=== PATIENT | male | born 1955 | race Caucasian/White ===

== ENCOUNTER → 2016-10-23 | Outpatient (CLI) | payer MEDICAID | LOC: SP 12:59 | PROVIDERS: ATTEND Internal Medicine Cardiovascular Disease | DX: R09.89 Other specified symptoms and signs involving the circulatory and respiratory systems (principal) | CPT/HCPCS: 93880 ==

== ENCOUNTER → 2016-11-14 | Outpatient (CLI) | payer MEDICAID ==
--- NOTE | 2016-11-14 12:45 | XCELERA REPORT ---
[address] [address] Lower Extremity Arterial Evaluation Name: PEPPER MARK Age: 61 yrs Gender: Male : 1955 Patient Status: Outpatient Patient Location: Study Date: 11/14/2016 11:27 AM Procedure: A color flow and duplex scan of the lower extremity arteries was performed bilaterally with velocity and waveform anaylsis. Ankle brachial indicies performed. Reason For Study: PVD Ordering Physician: FLY ROSALES Performed By: Judy Krishna Measurements and Calculations Right Left CORPORATE TRUST OFFICER PSV 105.3 110.3 cm/sec Prox PFA PSV -74.4 -101.3 cm/sec Prox SFA PSV 105.3 96.4 cm/sec Mid SFA PSV -88.8 -73.2 cm/sec Dist SFA PSV -71.6 -77.1 cm/sec Prox Pop A PSV 72.5 64.3 cm/sec Dist GISELLA PSV 62.0 61.9 cm/sec Dist LIBRARY CLERK PSV 74.2 57.5 cm/sec Oscar Pedis PSV 64.6 62.0 cm/sec Right Side Arterial Evaluation Normal velocity, waveform and triphasic flow are present, from the Common Femoral artery down to the infrageniculate vessels. The ankle-brachial index is 1.25. 0 % stenosis is noted. Left Side Arterial Evaluation Normal velocity, waveform and triphasic flow are present, from the Common Femoral artery down to the infrageniculate vessels. The ankle-brachial index is 1.20. 0 % stenosis is noted. Interpretation Summary No hemodynamically significant lesions in the bilateral lower extremities, on duplex imaging, at rest. : FLY ROSALES > Miceky Levi
== END ==
LOC: SP 10:39
PROVIDERS: ATTEND Internal Medicine Cardiovascular Disease
DX: I73.89 Other specified peripheral vascular diseases (principal)
CPT/HCPCS: 93925

== ENCOUNTER → 2017-05-13 | Outpatient (CLI) | payer MEDICAID ==
--- NOTE | 2017-05-13 09:50 | RADIOLOGY REPORT (SQ) ---
EXAM DESCRIPTION: LUMBAR SPINE COMPLETE COMPLETED DATE/TIME: 05/13/2017 9:32 am REASON FOR STUDY: LUMBAGO WITH SCIATICA, LEFT SIDE M54.42 LUMBAGO WITH SCIATICA, LEFT SIDE COMPARISON: None. NUMBER OF VIEWS: Five views including obliques. TECHNIQUE: AP, lateral, oblique, and sacral radiographic images acquired of the lumbar spine. LIMITATIONS: None. FINDINGS: MINERALIZATION: Normal. SEGMENTATION: Normal. No transitional anatomy. ALIGNMENT: Normal. VERTEBRAE: Maintained height. No fracture or worrisome bone lesion. DISCS: Preserved height. No significant osteophytes or end plate irregularity. POSTERIOR ELEMENTS: Pedicles and facets are intact. No pars defect or posterior arch defects. HARDWARE: None in the spine. PARASPINAL SOFT TISSUES: Normal. PELVIS: Intact as visualized. No fractures or worrisome bone lesions. SI joints intact. OTHER: No other significant finding. IMPRESSION: NORMAL 5 VIEW LUMBAR SPINE. TECHNICAL DOCUMENTATION: JOB ID: [id number] [employer]- All Rights Reserved
== END ==
LOC: OD 09:16
PROVIDERS: ATTEND Family Medicine
DX: M54.42 Lumbago with sciatica, left side (principal)
CPT/HCPCS: 72110

== ENCOUNTER 2017-11-18 13:31 | Emergency (ER) | payer MEDICAID ==
[2017-11-18 13:56] LABS: ABSOLUTE BASOPHILS # (AUTO) 0.2 10^3/uL (0.0-0.2); ABSOLUTE EOSINOPHILS # (AUTO) 0.1 10^3/uL (0.0-0.6); ABSOLUTE LYMPHOCYTES (AUTO) 1.8 10^3/uL (0.5-4.7); ABSOLUTE MONOCYTES (AUTO) 0.7 10^3/uL (0.1-1.4); ABSOLUTE NEUT (AUTO) 3.7 10^3/uL (1.7-8.2); BASOPHILS % (AUTO) 2.4 % (0-2); EOSINOPHILS % (AUTO) 1.8 % (0-6); HEMATOCRIT 39.7 % (37.9-51.0); HEMOGLOBIN 13.3 g/dL (13.5-17.0); MEAN CORPUSCULAR HEMOGLOBIN 32.3 pg (27.0-33.4); MEAN CORPUSCULAR HGB CONC 33.6 g/dL (32.0-36.0); MEAN CORPUSCULAR VOLUME 96 fl (80-97); MONOCYTES % (AUTO) 10.6 % (3-13); PLATELET COUNT 233 10^3/uL (150-450); RED BLOOD COUNT 4.12 10^6/uL (4.35-5.55); RED CELL DISTRIBUTION WIDTH 14.7 % (11.5-14.0); SEGMENTED NEUTROPHILS % (AUTO) 57.2 % (42-78); TOTAL CELLS COUNTED % (AUTO) 100 %; WHITE BLOOD COUNT 6.4 10^3/uL (4.0-10.5)
[2017-11-18 14:13] LABS: ALANINE AMINOTRANSFERASE 40 U/L (21-72); ALBUMIN 3.7 g/dL (3.5-5.0); ALKALINE PHOSPHATASE 39 U/L (38-126); ANION GAP 8 (5-19); ASPARTATE AMINO TRANSFERASE 39 U/L (17-59); BILIRUBIN,DIRECT 0.3 mg/dL (0.0-0.4); BILIRUBIN,TOTAL 0.3 mg/dL (0.2-1.3); BLOOD UREA NITROGEN 19 mg/dL (7-20); CALCIUM 8.5 mg/dL (8.4-10.2); CARBON DIOXIDE 25 mmol/L (22-30); CHLORIDE 106 mmol/L (98-107); CREATINE KINASE 37 U/L (55-170); GLUCOSE 82 mg/dL (75-110); POTASSIUM 4.8 mmol/L (3.6-5.0); SODIUM 139.1 mmol/L (137-145); TOTAL PROTEIN 6.5 g/dL (6.3-8.2)
[2017-11-18] MEDS ORDERED: NORMAL SALINE 1000 ML 1,000 ML IV ONE (14:23)
[2017-11-18 14:25] LABS: CREATINE KINASE MB 0.29 ng/mL (<4.55)
[2017-11-18 14:26] LABS: TROPONIN I < 0.012 ng/mL
[2017-11-18 14:47] LABS: APPEARANCE,URINE SLIGHTLY-CLOUDY; BILIRUBIN,URINE NEGATIVE (NEGATIVE); COLOR,URINE YELLOW; GLUCOSE, URINE NEGATIVE (NEGATIVE); KETONES,URINE NEGATIVE (NEGATIVE); LEUKOCYTE ESTERASE,URINE NEGATIVE (NEGATIVE); NITRITE,URINE NEGATIVE (NEGATIVE); PROTEIN,URINE NEGATIVE (NEGATIVE); URINE SPECIFIC GRAVITY 1.012
--- NOTE | 2017-11-18 14:57 | ER Document Report ---
ED General - General Chief Complaint: Syncope Stated Complaint: WEAKNESS Time Seen by Provider: 11/18/17 14:23 TRAVEL OUTSIDE OF THE [place] IN LAST 30 DAYS: No - HPI Patient complains to provider of: Near syncopal Notes: Patient coming in for near syncopal episode. Patient states he was in his house when they were knocking on his door he went to stand up turgor states he may stand up too fast tunnel vision and then slid down the wall. Patient denies falling denies any head pain chest pain or abdominal pain prior to during or after this episode. Patient orthostatic upon arrival here to ER and has received 2 L of IV fluids. Upon my evaluation patient resting comfortably does not have any other complaints. Patient denies fevers chills nausea vomiting recent travel. Patient's resting comfortably requesting something E. Upon further review the patient's past visits patient looked have elevated alcohol in the past denies any alcohol today we will check an alcohol level. - Related Data Allergies/Adverse Reactions: No Known Allergies Allergy (Verified 06/05/15 09:15) Past Medical History - Social History Smoking Status: Unknown if Ever Smoked Family History: Reviewed & Not Pertinent - Past Medical History Cardiac Medical History: Reports: Hx Hypertension Denies: Hx Coronary Artery Disease, Hx Heart Attack Pulmonary Medical History: Reports: Hx COPD, Hx Pneumonia Denies: Hx Asthma, Hx Bronchitis Neurological Medical History: Denies: Hx Cerebrovascular Accident, Hx Seizures GI Medical History: Reports: Hx Gastroesophageal Reflux Disease Musculoskeltal Medical History: Reports Hx Arthritis Psychiatric Medical History: Reports: Hx Depression - Immunizations Hx Diphtheria, Pertussis, Tetanus Vaccination: Yes Hx Pneumococcal Vaccination: 09/08/00 Review of Systems - Review of Systems Constitutional: No symptoms reported EENT: No symptoms reported Cardiovascular: Syncope Respiratory: No symptoms reported Gastrointestinal: No symptoms reported Genitourinary: No symptoms reported Male Genitourinary: No symptoms reported Musculoskeletal: No symptoms reported Skin: No symptoms reported Hematologic/Lymphatic: No symptoms reported Neurological/Psychological: No symptoms reported -: Yes All other systems reviewed and negative Physical Exam - Vital signs Vitals: Resp 17 11/18/17 13:45 Interpretation: Normal - General General appearance: Appears well, Alert - HEENT Head: Normocephalic, Atraumatic Eyes: Normal Pupils: PERRL - Respiratory Respiratory status: No respiratory distress Chest status: Nontender Breath sounds: Normal Chest palpation: Normal - Cardiovascular Rhythm: Regular Heart sounds: Normal auscultation Murmur: No - Abdominal Inspection: Normal Distension: No distension Bowel sounds: Normal Tenderness: Nontender Organomegaly: No organomegaly - Back Back: Normal, Nontender - Extremities General upper extremity: Normal inspection, Nontender, Normal color, Normal ROM , Normal temperature General lower extremity: Normal inspection, Nontender, Normal color, Normal ROM , Normal temperature, Normal weight bearing. No: Neda's sign - Neurological Neuro grossly intact: Yes Cognition: Normal Orientation: AAOx4 Alfa Coma Scale Eye Opening: Spontaneous Alfa Coma Scale Verbal: Oriented Arvin Coma Scale Motor: Obeys Commands Arvin Coma Scale Total: 15 Speech: Normal Motor strength normal: LUE, RUE, LLE, RLE Sensory: Normal - Psychological Associated symptoms: Normal affect, Normal mood - Skin Skin Temperature: Warm Skin Moisture: Dry Skin Color: Normal Course - Re-evaluation Re-evalutation: 11/18/17 14:56 We will check alcohol level due to previous visits having elevated alcohol. Patient otherwise still slightly orthostatic will give IV fluids. Patient will be discharged for laboratory studies and patient passes ambulation 11/18/17 21:41 Laboratory studies returned elevated alcohol level patient states he was drinking vodka at night prior but nothing today. Patient otherwise asymptomatic at this time will discharge patient home. The patient has near syncope as the patient's near syncope is not suggestive of pulmonary embolus, cardiac ischemia, aortic dissection, or other serious etiology. Given the extremely low risk of these diagnoses further testing and evaluation for these possibilities does not appear to be indicated at this time. The patient has been instructed to return if the symptoms worsen or change in any way. - Vital Signs Vital signs: Temp Pulse Resp BP Pulse Ox 89 16 119/76 97 11/18/17 14:03 11/18/17 16:40 11/18/17 16:40 11/18/17 16:40 - Laboratory Result Diagrams: 11/18/17 13:42 11/18/17 13:42 Laboratory results interpreted by me: 11/18/17 11/18/17 11/18/17 13:42 13:42 13:59 RBC 4.12 L Hgb 13.3 L RDW 14.7 H Basophils % 2.4 H Creatine Kinase 37 L Urine Urobilinogen 2.0 H Discharge - Discharge Clinical Impression: Near syncope Acute alcohol intoxication Qualifiers: Complication of substance-induced condition: uncomplicated Qualified Code(s): F10.929 - Alcohol use, unspecified with intoxication, unspecified Condition: Good Disposition: HOME, SELF-CARE Instructions: Acute Alcohol Intoxication ([facility]), Near Syncopal Episode ([facility]) Additional Instructions: Please gradually decrease yourr alcohol consumption. Please supplement this with increased water intake and/or fluids such as Gatorade. Return to ER if symptoms worsen. More likely this is the reason for your episode today. Laboratory studies otherwise not reveal any significant pathology. Referrals: LOCALMD,NO [Primary Care Provider] - Follow up as needed
--- NOTE | 2017-11-18 15:22 | RADIOLOGY REPORT (SQ) ---
EXAM DESCRIPTION: CHEST PA/LAT COMPLETED DATE/TIME: 11/18/2017 3:09 pm REASON FOR STUDY: syncope COMPARISON: 01/17/2013 EXAM PARAMETERS: NUMBER OF VIEWS: two views TECHNIQUE: Digital Frontal and Lateral radiographic views of the chest acquired. RADIATION DOSE: NA LIMITATIONS: none FINDINGS: LUNGS AND PLEURA: No opacities, masses or pneumothorax. No pleural effusion. MEDIASTINUM AND HILAR STRUCTURES: No masses or contour abnormalities. HEART AND VASCULAR STRUCTURES: Heart normal size. No evidence for failure. BONES: No acute findings. HARDWARE: None in the chest. OTHER: No other significant finding. IMPRESSION: NO SIGNIFICANT RADIOGRAPHIC FINDING IN THE CHEST. TECHNICAL DOCUMENTATION: JOB ID: [id number] [email or web address]- All Rights Reserved Reading location - IP/workstation name: [email or web address]
[2017-11-18 16:51] VITALS: BP 119/76
--- NOTE | 2017-11-18 20:02 | EKG REPORT ---
SEVERITY:- NORMAL ECG - SINUS RHYTHM : Confirmed by: Glenn Quinonez MD 18-Nov-2017 20:01:56
== END 2017-11-18 16:58 | disposition home or self-care (01) ==
LOC: ER 13:31
DX: R55 Syncope and collapse (principal); F10.129 Alcohol abuse with intoxication, unspecified; I10 Essential (primary) hypertension; J44.9 Chronic obstructive pulmonary disease, unspecified
CPT/HCPCS: 93005; 99285; 96360; 36415; 82553; 80307; 82550; 85025; 80053; 81001; 84484; 71046; 93010; J7030

== ENCOUNTER 2018-10-21 09:05 | Day surgery (SDC) | payer MEDICAID ==
[~2018-10-21 09:05] MED LIST: KETOROLAC TROMETHAMINE 0.45% 4 DROP/0.4 ML DROPERETTE OD PRN
[2018-10-21] MEDS ORDERED: CHONDR SU A NA/HYALUR INTRAOC KIT (SURGICARE) ONE (09:42)
[2018-10-21] MEDS ORDERED: LIDOCAINE 1% INJ-PF (10 MG/ML) 30 ML SDV ONE (09:42)
[2018-10-21] MEDS ORDERED: EPINEPHRINE INJ/PF 1 MG/1 ML AMPULE ONE (09:42)
[2018-10-21] MEDS ORDERED: MIDAZOLAM 2 MG/2 ML INJ ONE (10:02)
[2018-10-21] MEDS: TETRACAINE HCL 0.5% OPH SOLN 0.6 ML DROPERETTE OD PRN ×3 (10:25→11:07)
[2018-10-21] MEDS: TROPICAMIDE 1% OPH SOLN 3 ML OD PRN ×3 (10:25→10:45)
[2018-10-21] MEDS: BESIFLOXACIN HCL 0.6% OPH SUSP 5 ML BOTTLE OD PRN ×4 (10:25→11:27)
[2018-10-21] MEDS: CYCLOPENTOLATE 0.2%/PHENYLEPHRINE 1% OPH SOLN 2 ML OD PRN ×3 (10:25→10:45)
[2018-10-21] MEDS: TOBRAMYCIN SULFATE/DEXAMETH OPH OINTMENT 3.5 GM ONE ×2 (11:19→11:27)
== END 2018-10-21 12:06 | disposition home or self-care (01) ==
LOC: SC 09:05
PROVIDERS: ATTEND Ophthalmology
DX: H25.11 Age-related nuclear cataract, right eye (principal); I10 Essential (primary) hypertension; G47.30 Sleep apnea, unspecified; K21.9 Gastro-esophageal reflux disease without esophagitis; Z79.899 Other long term (current) drug therapy
CPT/HCPCS: 66984; V2632; J2250; J3490 ×5; J0171; 142

== ENCOUNTER 2019-01-31 07:39 | Emergency (ER) | payer MEDICAID ==
[2019-01-31] MEDS ORDERED: CLINDAMYCIN 600 MG/D5W RTU 600 MG/50 ML RTUPB IV ONE (09:19)
[2019-01-31] MEDS ORDERED: FENTANYL CITRATE INJ/PF 100 MCG/2 ML AMPUL IV ONE ×2 (09:20→11:16)
[2019-01-31 09:58] LABS: ALANINE AMINOTRANSFERASE 44 U/L (21-72); ALBUMIN 4.3 g/dL (3.5-5.0); ALKALINE PHOSPHATASE 79 U/L (38-126); ANION GAP 14 (5-19); ASPARTATE AMINO TRANSFERASE 42 U/L (17-59); BILIRUBIN,DIRECT 0.4 mg/dL (0.0-0.4); BLOOD UREA NITROGEN 6 mg/dL (7-20); CALCIUM 9.8 mg/dL (8.4-10.2); CARBON DIOXIDE 28 mmol/L (22-30); CHLORIDE 95 mmol/L (98-107); GLUCOSE 96 mg/dL (75-110); POTASSIUM 4.6 mmol/L (3.6-5.0); SODIUM 136.7 mmol/L (137-145); TOTAL PROTEIN 7.5 g/dL (6.3-8.2)
[2019-01-31 09:59] LABS: HEMATOCRIT 41.7 % (37.9-51.0); HEMOGLOBIN 13.9 g/dL (13.5-17.0); MEAN CORPUSCULAR HEMOGLOBIN 34.2 pg (27.0-33.4); MEAN CORPUSCULAR HGB CONC 33.3 g/dL (32.0-36.0); MEAN CORPUSCULAR VOLUME 102 fl (80-97); PLATELET COUNT 210 10^3/uL (150-450); RED BLOOD COUNT 4.07 10^6/uL (4.35-5.55); RED CELL DISTRIBUTION WIDTH 14.7 % (11.5-14.0); WHITE BLOOD COUNT 11.8 10^3/uL (4.0-10.5)
--- NOTE | 2019-01-31 10:17 | RADIOLOGY REPORT (SQ) ---
EXAM DESCRIPTION: TIBIA FIBULA RIGHT COMPLETED DATE/TIME: 01/31/2019 9:49 am REASON FOR STUDY: redness/swelling COMPARISON: None. NUMBER OF VIEWS: Two views. TECHNIQUE: Two radiographic images acquired of the right tibia and fibula to include the knee and an kle in at least one projection. LIMITATIONS: None. FINDINGS: MINERALIZATION: Normal. BONES: No acute fracture or dislocation. No worrisome bone lesions. SOFT TISSUES: No obvious swelling or foreign body. OTHER: No other significant finding. IMPRESSION: NEGATIVE STUDY OF THE RIGHT TIBIA AND FIBULA. NO RADIOGRAPHIC EVIDENCE OF ACUTE INJURY. TECHNICAL DOCUMENTATION: JOB ID: [id number]- All Rights Reserved Reading location - IP/workstation name: [email or web address]
--- NOTE | 2019-01-31 10:17 | RADIOLOGY REPORT (SQ) ---
EXAM DESCRIPTION: KNEE RIGHT 4 VIEWS COMPLETED DATE/TIME: 01/31/2019 9:48 am REASON FOR STUDY: redness/swelling COMPARISON: None. NUMBER OF VIEWS: Four views. TECHNIQUE: AP, lateral, and both oblique radiographic images acquired of the right knee. LIMITATIONS: None. FINDINGS: MINERALIZATION: Normal. BONES: No acute fracture or dislocation. No worrisome bone lesions. JOINT: No effusion. SOFT TISSUES: Vascular calcifications. OTHER: No other significant finding. IMPRESSION: NO RADIOGRAPHIC EVIDENCE OF ACUTE INJURY. TECHNICAL DOCUMENTATION: JOB ID: [id number] [employer]- All Rights Reserved Reading location - IP/workstation name: [email or web address]
[2019-01-31 10:22] LABS: ABSOLUTE LYMPHOCYTES# (MANUAL) 3.4 10^3/uL (0.5-4.7); ABSOLUTE MONOCYTES # (MANUAL) 1.2 10^3/uL (0.1-1.4); ABSOLUTE NEUTROPHILS# (MANUAL) 7.2 10^3/uL (1.7-8.2); BASOPHILS % (MANUAL) 0 % (0-2); EOSINOPHILS % (MANUAL) 0 % (0-6); LYMPHOCYTES % (MANUAL) 29 % (13-45); MONOCYTES % (MANUAL) 10 % (3-13); SEGMENTED NEUTROPHILS % (MAN) 61 % (42-78); TOTAL CELLS COUNTED 100
[2019-01-31 10:23] LABS: ANISOCYTOSIS SLIGHT; POLYCHROMASIA SLIGHT
[2019-01-31 10:24] LABS: PLATELET COMMENT ADEQUATE
[2019-01-31] MEDS ORDERED: RINGERS SOLUTION,LACTATED 1,000 ML IV ONE (10:34)
--- NOTE | 2019-01-31 12:52 | ER Document Report ---
ED General - General Chief Complaint: Abscess Stated Complaint: RIGHT KNEE PAIN Time Seen by Provider: 01/31/19 08:17 Primary Care Provider: NISHANT MILLS DO [Primary Care Provider] - Follow up as needed Notes: Patient is a 64-year-old male presents to the emergency department for right knee redness and swelling. Patient states on Friday he thought he had a "blackhead" on his right knee. States he "popped it." States he did get some purulent drainage but since then the redness has increased and he has had inc reased pain. Patient presents to the emergency department for evaluation. Patient is denying any history of MRSA infections or abscesses in the past. Patient is denying any fevers. Patient is stating his right lower extremity is "a little bit more swollen" than normal. Patient typically walks with a cane and is able to bear weight on his right lower extremity. Patient has full range of motion of right knee. Past medical history: Peripheral vascular disease, arthritis, hypertension, GERD Medications: Lyrica, Proscar, lisinopril, omeprazole, clonazepam, Flexeril, Restoril, tamsulosin, atenolol, Remeron Allergies: None TRAVEL OUTSIDE OF THE [place] IN LAST 30 DAYS: No - Related Data Allergies/Adverse Reactions: No Known Allergies Allergy (Verified 01/31/19 07:41) Past Medical History - General Information source: Patient - Social History Smoking Status: Current Every Day Smoker Chew tobacco use (# tins/day): Yes Frequency of alcohol use: Occasional Drug Abuse: None Family History: Reviewed & Not Pertinent Patient has suicidal ideation: No Patient has homicidal ideation: No - Past Medical History Cardiac Medical History: Reports: Hx Hypertension Denies: Hx Coronary Artery Disease, Hx Heart Attack Pulmonary Medical History: Reports: Hx COPD, Hx Pneumonia Denies: Hx Asthma, Hx Bronchitis Neurological Medical History: Denies: Hx Cerebrovascular Accident, Hx Seizures Renal/ Medical History: Denies: Hx Peritoneal Dialysis GI Medical History: Reports: Hx Gastroesophageal Reflux Disease, Hx Hiatal Hernia, Hx Ulcer - YEARS AGO. Denies: Hx Hepatitis Musculoskeletal Medical History: Reports Hx Arthritis Psychiatric Medical History: Reports: Hx Depression Infectious Medical History: Denies: Hx Hepatitis Past Surgical History: Reports: Hx Abdominal Surgery, Hx Orthopedic Surgery - right arm. Denies: Hx Open Heart Surgery, Hx Pacemaker - Immunizations Hx Diphtheria, Pertussis, Tetanus Vaccination: Yes Hx Pneumococcal Vaccination: 09/08/00 Review of Systems - Review of Systems Constitutional: denies: Fever EENT: No symptoms reported Cardiovascular: No symptoms reported Respiratory: No symptoms reported Gastrointestinal: No symptoms reported Genitourinary: No symptoms reported Male Genitourinary: No symptoms reported Musculoskeletal: See HPI Skin: See HPI Hematologic/Lymphatic: No symptoms reported Neurological/Psychological: No symptoms reported Physical Exam - Vital signs Vitals: Temp Pulse Resp BP Pulse Ox 98.1 F 106 H 16 116/77 94 01/31/19 07:41 01/31/19 07:41 01/31/19 07:41 01/31/19 07:41 01/31/19 07:41 - Notes Notes: GENERAL: Alert, interacts well. No acute distress. HEAD: Normocephalic, atraumatic. EYES: Pupils equal, round, and reactive to light. Extraocular movements intact. ENT: Oral mucosa moist, tongue midline. NECK: Full range of motion. Supple. Trachea midline. LUNGS: Clear to auscultation bilaterally, no wheezes, rales, or rhonchi. No respiratory distress. HEART: Regular rate and rhythm. No murmur ABDOMEN: Soft, non-tender. Bowel sounds present in all 4 quadrants. EXTREMITIES: Moves all 4 extremities spontaneously. No edema, normal radial and dorsalis pedis pulses bilaterally. No cyanosis. BACK: no cervical, thoracic, lumbar midline tenderness. No saddle anesthesia, normal distal neurovascular exam. NEUROLOGICAL: Alert and oriented x3. Normal speech. cranial nerves II through XII grossly intact PSYCH: Normal affect, normal mood. SKIN: Warm, dry, normal turgor. Scabbed area noted to the medial aspect of the right knee. Surrounding erythema is nonfluctuant, nonindurated. Patient has a small amount of erythema noted in the proximal aspect of his right wong. Patient has full range of motion of his right knee. Capillary refill less than 2 seconds bilateral lower extremities. Course - Re-evaluation Re-evalutation: 01/31/19 12:53 Laboratory 01/31/19 01/31/19 01/31/19 09:10 09:10 09:10 WBC 11.8 H RBC 4.07 L Hgb 13.9 Hct 41.7 MCV 102 H MCH 34.2 H MCHC 33.3 RDW 14.7 H Plt Count 210 Total Counted 100 Seg Neutrophils % Not Reportable Seg Neuts % (Manual) 61 Lymphocytes % Not Reportable Lymphocytes % (Manual) 29 Monocytes % Not Reportable Monocytes % (Manual) 10 Eosinophils % Not Reportable Eosinophils % (Manual) 0 Basophils % Not Reportable Basophils % (Manual) 0 Absolute Neutrophils Not Reportable Abs Neuts (Manual) 7.2 Absolute Lymphocytes Not Reportable Abs Lymphs (Manual) 3.4 Absolute Monocytes Not Reportable Abs Monocytes (Manual) 1.2 Absolute Eosinophils Not Reportable Absolute Eos (Manual) 0.0 Absolute Basophils Not Reportable Abs Basophils (Manual) 0.0 Platelet Comment ADEQUATE Polychromasia SLIGHT Anisocytosis SLIGHT Macrocytosis 1+ Sodium 136.7 L Potassium 4.6 Chloride 95 L Carbon Dioxide 28 Anion Gap 14 BUN 6 L Creatinine 0.60 Est GFR ( Amer) > 60 Est GFR (Non-Af Amer) > 60 Glucose 96 Lactic Acid 2.3 H Calcium 9.8 Total Bilirubin 1.0 Direct Bilirubin 0.4 Neonat Total Bilirubin Not Reportable Neonat Direct Bilirubin Not Reportable Neonat Indirect Bili Not Reportable AST 42 ALT 44 Alkaline Phosphatase 79 Total Protein 7.5 Albumin 4.3 Knee X-Ray 01/31/19 08:48 IMPRESSION: NO RADIOGRAPHIC EVIDENCE OF ACUTE INJURY. Tibia/Fibula X-Ray 01/31/19 08:48 IMPRESSION: NEGATIVE STUDY OF THE RIGHT TIBIA AND FIBULA. NO RADIOGRAPHIC EVIDENCE OF ACUTE INJURY. Patient continues with full range of motion of his right knee with a small amount of pain. I do not suspect a septic joint at this time. Patient's labs are as above. Patient was treated with a dose of clindamycin, fluid resuscitation and pain medication in the emergency department. States he overall feels a lot better. Patient's right knee was marked with a surgical marker area of erythema. Close return precautions discussed at length with patient and patient's nephew at bedside. Discussed importance of taking antibiotics and following up with primary care provider or returning to the emergency room. Patient voices understanding, nephew voices understanding, patient stable for discharge. - Vital Signs Vital signs: Temp Pulse Resp BP Pulse Ox 98.1 F 106 H 16 116/77 94 01/31/19 07:41 01/31/19 07:41 01/31/19 07:41 01/31/19 07:41 01/31/19 07:41 - Laboratory Result Diagrams: 01/31/19 09:10 01/31/19 09:10 Laboratory results interpreted by me: 01/31/19 01/31/19 01/31/19 09:10 09:10 09:10 WBC 11.8 H RBC 4.07 L MCV 102 H MCH 34.2 H RDW 14.7 H Sodium 136.7 L Chloride 95 L BUN 6 L Lactic Acid 2.3 H Discharge - Discharge Clinical Impression: Cellulitis Qualifiers: Site of cellulitis: extremity Site of cellulitis of extremity: lower extremity Laterality: right Qualified Code(s): L03.115 - Cellulitis of right lower limb Condition: Stable Disposition: HOME, SELF-CARE Instructions: Trimethoprim-Sulfa ([facility]), MRSA Cellulitis ([facility]), Cephalexin ([facility]), Abscess ([facility]) Additional Instructions: As we discussed you have been seen and treated in the emergency department for a bacterial skin infection to your right knee. It is very important that you take antibiotics as prescribed. Is also very important that you follow-up with your primary care provider within the next 24 to 48 hours. Also after taking antibiotics for 48-hour. Should the redness or swelling go beyond the silveira that I have made you should immediately return to the emergency room. Also if you are unable to bend to the right knee or have any other concerns he should immediately return to the emergency room. Prescriptions: Cephalexin Monohydrate [Keflex 500 mg Capsule] 500 mg PO BID 7 Days #14 capsule Sulfamethoxazole/Trimethoprim [Bactrim Ds Tablet] 2 each PO BID 7 Days tablet Referrals: NISHANT MILLS DO [Primary Care Provider] - Follow up as needed
[2019-01-31 12:54] VITALS: BP 101/67
[2019-01-31] MEDS ORDERED: CEPHALEXIN 500 MG CAPSULE PO ONE (12:57)
[2019-01-31] MEDS ORDERED: SULFAMETHOXAZOLE/TRIMETHOPRIM 800-160 MG TABLET PO ONE (12:57)
== END 2019-01-31 13:21 | disposition home or self-care (01) ==
LOC: ER 07:39
DX: L03.115 Cellulitis of right lower limb (principal); I10 Essential (primary) hypertension; F17.200 Nicotine dependence, unspecified, uncomplicated
CPT/HCPCS: 96376; 99283; 96375; 96365; 36415; 87040; 85025; 80053; 83605; 73564; 73590; S0077; J3010; J3490; J7120

== ENCOUNTER 2019-02-04 10:28 | Emergency (ER) | payer MEDICAID ==
--- NOTE | 2019-02-04 11:23 | ER Document Report ---
ED Medical Screen (RME) - General Chief Complaint: Swelling of Lower Extremity Stated Complaint: KNEE PAIN Time Seen by Provider: 02/04/19 11:18 Primary Care Provider: NISHANT MILLS DO [Primary Care Provider] - Follow up as needed TRAVEL OUTSIDE OF THE [place] IN LAST 30 DAYS: No - HPI Notes: 02/04/19 11:21 Patient is a 64-year-old male complaining of continued right anterior knee pain, redness, and swelling after being evaluated 4 days ago and placed on antibiotics. Patient states that he is having some white purulent discharge from the wound and is concerned about possible abscess. Denies drug allergies. No other concerns or complaints. He is still able to weight-bear and flex his knee without difficult he otherwise. No history of MRSA. Denies BLUM, fever, neck pain, URI, CP, SOB, Abd pain, dysuria, back pain. I have treated and performed a rapid initial assessment of this patient. A comprehensive ED assessment and evaluation of the patient, analysis of test results and completion of medical decision making process will be conducted by additional ED providers. PHYSICAL EXAMINATION: GENERAL: Well-appearing, well-nourished and in no acute distress. A&Ox4. Answers questions appropriately. LUNGS: Breath sounds clear to auscultation bilaterally and equal. No wheezes rales or rhonchi. HEART: Regular rate and rhythm without murmurs, rubs, gallops. Rt knee: + prepatellar/anterior erthema, warmth, and swelling noted. No streaks or active purulence. No obvious fluctuance noted, may need US to further evaluate at bedside. Will defer to main side provider. - Related Data Allergies/Adverse Reactions: No Known Allergies Allergy (Verified 02/04/19 11:16) Past Medical History - Social History Frequency of alcohol use: None Drug Abuse: None - Past Medical History Cardiac Medical History: Reports: Hx Hypertension Denies: Hx Coronary Artery Disease, Hx Heart Attack Pulmonary Medical History: Reports: Hx COPD, Hx Pneumonia Denies: Hx Asthma, Hx Bronchitis Neurological Medical History: Denies: Hx Cerebrovascular Accident, Hx Seizures Renal/ Medical History: Denies: Hx Peritoneal Dialysis GI Medical History: Reports: Hx Gastroesophageal Reflux Disease, Hx Hiatal Hernia, Hx Ulcer - YEARS AGO. Denies: Hx Hepatitis Musculoskeltal Medical History: Reports Hx Arthritis Psychiatric Medical History: Reports: Hx Depression Infectious Medical History: Denies: Hx Hepatitis Past Surgical History: Reports: Hx Abdominal Surgery, Hx Orthopedic Surgery - right arm nisha, right hip, ankle. Denies: Hx Open Heart Surgery, Hx Pacemaker - Immunizations Hx Diphtheria, Pertussis, Tetanus Vaccination: Yes Physical Exam - Vital signs Vitals: Temp Pulse Resp BP Pulse Ox 98.1 F 82 18 102/62 96 02/04/19 10:52 02/04/19 10:52 02/04/19 10:52 02/04/19 10:52 02/04/19 10:52 Course - Vital Signs Vital signs: Temp Pulse Resp BP Pulse Ox 98.1 F 82 18 102/62 96 02/04/19 10:52 02/04/19 10:52 02/04/19 10:52 02/04/19 10:52 02/04/19 10:52 Doctor's Discharge - Discharge Referrals: NISHANT MILLS DO [Primary Care Provider] - Follow up as needed
--- NOTE | 2019-02-04 12:56 | RADIOLOGY REPORT (SQ) ---
EXAM DESCRIPTION: KNEE RIGHT 3 VIEWS COMPLETED DATE/TIME: 02/04/2019 12:31 pm REASON FOR STUDY: redness, pain COMPARISON: None. NUMBER OF VIEWS: Four views. TECHNIQUE: AP, lateral, and both oblique radiographic images acquired of the right knee. LIMITATIONS: None. FINDINGS: MINERALIZATION: Normal. BONES: No acute fracture or dislocation. No worrisome bone lesions. JOINT: There are tiny posterior patellar spurs. SOFT TISSUES: There appears to be mild prepatellar soft tissue swelling. OTHER: No other significant finding. IMPRESSION: Prepatellar soft tissue swelling. No acute osseous abnormality. Mild patellofemoral de generative joint changes. TECHNICAL DOCUMENTATION: JOB ID: [id number] [employer]- All Rights Reserved Reading location - IP/workstation name: [email or web address]
[2019-02-04 13:53] LABS: ALANINE AMINOTRANSFERASE 46 U/L (21-72); ALBUMIN 3.6 g/dL (3.5-5.0); ALKALINE PHOSPHATASE 61 U/L (38-126); ANION GAP 10 (5-19); ASPARTATE AMINO TRANSFERASE 59 U/L (17-59); BILIRUBIN,DIRECT 0.3 mg/dL (0.0-0.4); BILIRUBIN,TOTAL 0.4 mg/dL (0.2-1.3); BLOOD UREA NITROGEN 5 mg/dL (7-20); CALCIUM 9.4 mg/dL (8.4-10.2); CARBON DIOXIDE 29 mmol/L (22-30); CHLORIDE 98 mmol/L (98-107); GLUCOSE 89 mg/dL (75-110); POTASSIUM 4.3 mmol/L (3.6-5.0); SODIUM 136.7 mmol/L (137-145); TOTAL PROTEIN 6.3 g/dL (6.3-8.2)
--- NOTE | 2019-02-04 14:18 | RADIOLOGY REPORT (SQ) ---
EXAM DESCRIPTION: VENOUS UNILATERAL LOWER COMPLETED DATE/TIME: 02/04/2019 1:57 pm REASON FOR STUDY: pain left leg / Hx clots COMPARISON: None. TECHNIQUE: Dynamic and static becerra scale and color images acquired of the left leg venous system. Se lected spectral images acquired with additional compression and augmentation maneuvers. The contralat eral common femoral vein and saphenofemoral junction were also imaged. Images stored on PACS. LIMITATIONS: None. FINDINGS: RIGHT COMMON FEMORAL: Normal phasicity, compression and augmentation. No visualized echogenic material on g ray scale. No defects on color images. FEMORAL: Normal compression and augmentation. No visualized echogenic material on becerra scale. No defe cts on color images. POPLITEAL: Normal compression, augmentation. No visualized echogenic material on becerra scale. No defec ts on color images. POSTERIOR TIBIAL AND PERONEAL VEINS: Normal compression, augmentation. No visualized echogenic materi al on becerra scale. No defects on color images. GSV and SSV: Normal compression, augmentation. No visualized echogenic material on becerra scale. No def ects on color images. ANY DEEP VENOUS INSUFFICIENCY: Not evaluated. ANY EVIDENCE OF POPLITEAL CYST: No. OTHER: No other significant finding. LEFT COMMON FEMORAL VEIN AND SAPHENOFEMORAL JUNCTION: Normal phasicity, compression and augmentation. No visualized echogenic material on becerra scale. No de fects on color images. IMPRESSION: NO EVIDENCE OF DVT OR SVT IN THE LEFT LEG. TECHNICAL DOCUMENTATION: JOB ID: [id number] [employer]- All Rights Reserved Reading location - IP/workstation name: [email or web address]
[2019-02-04] MEDS ORDERED: KETOROLAC TROMETHAMINE INJ/PF 30 MG/1 ML SDV IV ONE (14:36)
[2019-02-04] MEDS ORDERED: KETOROLAC TROMETHAMINE INJ/PF 30 MG/1 ML SDV IM ONE (14:51)
[2019-02-04 15:02] LABS: ABSOLUTE BASOPHILS # (AUTO) 0.1 10^3/uL (0.0-0.2); ABSOLUTE EOSINOPHILS # (AUTO) 0.1 10^3/uL (0.0-0.6); ABSOLUTE LYMPHOCYTES (AUTO) 1.7 10^3/uL (0.5-4.7); ABSOLUTE MONOCYTES (AUTO) 1.1 10^3/uL (0.1-1.4); ABSOLUTE NEUT (AUTO) 4.7 10^3/uL (1.7-8.2); BASOPHILS % (AUTO) 1.1 % (0-2); EOSINOPHILS % (AUTO) 1.3 % (0-6); HEMATOCRIT 34.9 % (37.9-51.0); HEMOGLOBIN 11.8 g/dL (13.5-17.0); LYMPHOCYTES % (AUTO) 22.4 % (13-45); MEAN CORPUSCULAR HEMOGLOBIN 34.4 pg (27.0-33.4); MEAN CORPUSCULAR HGB CONC 33.9 g/dL (32.0-36.0); MEAN CORPUSCULAR VOLUME 101 fl (80-97); MONOCYTES % (AUTO) 13.8 % (3-13); PLATELET COUNT 192 10^3/uL (150-450); RED BLOOD COUNT 3.44 10^6/uL (4.35-5.55); RED CELL DISTRIBUTION WIDTH 14.9 % (11.5-14.0); SEGMENTED NEUTROPHILS % (AUTO) 61.4 % (42-78); TOTAL CELLS COUNTED % (AUTO) 100 %; WHITE BLOOD COUNT 7.7 10^3/uL (4.0-10.5)
--- NOTE | 2019-02-04 16:10 | ER Document Report ---
ED General - General Chief Complaint: Swelling of Lower Extremity Stated Complaint: KNEE PAIN Time Seen by Provider: 02/04/19 11:18 Primary Care Provider: NISHANT MILLS DO [Primary Care Provider] - Follow up as needed TRAVEL OUTSIDE OF THE [place] IN LAST 30 DAYS: No - HPI Notes: Patient is a 64-year-old gentleman who presents the emergency department for evaluation of right knee pain and leg swelling. He was seen here 4 days ago. He had had a "pimple" that he had a purulent drainage from. He states that the whole leg is swollen now and he is concerned that he may have an abscess. He denies any fevers or chills. No nausea or vomiting. He states his been taking his antibiotics as prescribed. - Related Data Allergies/Adverse Reactions: No Known Allergies Allergy (Verified 02/04/19 11:16) Past Medical History - General Information source: Patient - Social History Smoking Status: Current Every Day Smoker Frequency of alcohol use: None Drug Abuse: None Family History: Reviewed & Not Pertinent Patient has suicidal ideation: No Patient has homicidal ideation: No - Past Medical History Cardiac Medical History: Reports: Hx Hypertension Denies: Hx Coronary Artery Disease, Hx Heart Attack Pulmonary Medical History: Reports: Hx COPD, Hx Pneumonia Denies: Hx Asthma, Hx Bronchitis Neurological Medical History: Denies: Hx Cerebrovascular Accident, Hx Seizures Renal/ Medical History: Denies: Hx Peritoneal Dialysis GI Medical History: Reports: Hx Gastroesophageal Reflux Disease, Hx Hiatal Hernia, Hx Ulcer - YEARS AGO. Denies: Hx Hepatitis Musculoskeletal Medical History: Reports Hx Arthritis Psychiatric Medical History: Reports: Hx Depression Infectious Medical History: Denies: Hx Hepatitis Past Surgical History: Reports: Hx Abdominal Surgery, Hx Orthopedic Surgery - right arm nisha, right hip, ankle. Denies: Hx Open Heart Surgery, Hx Pacemaker - Immunizations Hx Diphtheria, Pertussis, Tetanus Vaccination: Yes Hx Pneumococcal Vaccination: 09/08/00 Review of Systems - Review of Systems Constitutional: No symptoms reported EENT: No symptoms reported Cardiovascular: No symptoms reported Respiratory: No symptoms reported Gastrointestinal: No symptoms reported Genitourinary: No symptoms reported Musculoskeletal: See HPI Skin: See HPI Neurological/Psychological: No symptoms reported Physical Exam - Vital signs Vitals: Temp Pulse Resp BP Pulse Ox 98.1 F 82 18 102/62 96 02/04/19 10:52 02/04/19 10:52 02/04/19 10:52 02/04/19 10:52 02/04/19 10:52 - Notes Notes: Vital signs reviewed, please refer to chart. Head is normocephalic, atraumatic. Pupils equal round, reactive to light. Neck is supple without meningismus. Heart is regular rate and rhythm. Lungs are clear to auscultation bilaterally. Abdomen is soft, nontender, normoactive bowel sounds throughout. Examination of the right lower extremity yields 3+ edema up to the right knee. He has a healing lesion over the patellar tendon, approximately 4 mm, that appears to have drained recently. There is no fluctuance in that area. He does have some surrounding erythema, very mild, not well demarcated.. Posterior calves are nontender. Peripheral pulses are equal. Skin is warm and dry. Patient is awake, alert, neurological exam is nonfocal. Course - Re-evaluation Re-evalutation: 02/04/19 18:21 Patient presents emergency department for evaluation. The patient's nurse from 4 days ago was actually here in the department, states that his erythema has significantly improved. Laboratory investigations failed to reveal leukocytosis. His x-ray did not reveal any effusion of the knee itself. I do not have a suspicion for knee joint infection. Overall the patient has significant improvement, with the exception of lower extremity edema. His Doppler was found to be negative. At this point patient is to continue his antibiotics, follow-up with primary care, return to the ED with worsening or new concerning symptoms of any sort. - Vital Signs Vital signs: Temp Pulse Resp BP Pulse Ox 98.2 F 84 20 110/66 98 02/04/19 16:15 02/04/19 16:15 02/04/19 16:15 02/04/19 16:15 02/04/19 16:15 - Laboratory Result Diagrams: 02/04/19 14:55 02/04/19 13:22 Laboratory results interpreted by me: 02/04/19 02/04/19 13:22 14:55 RBC 3.44 L Hgb 11.8 L Hct 34.9 L MCV 101 H MCH 34.4 H RDW 14.9 H Monocytes % 13.8 H Sodium 136.7 L BUN 5 L Discharge - Discharge Clinical Impression: Leg edema, right, Cellulitis of right leg Condition: Stable Disposition: HOME, SELF-CARE Instructions: Cellulitis ([facility]), Edema, Peripheral ([facility]) Additional Instructions: Elevate leg. Continue your antibiotics as prescribed. Follow-up with your doctor this week. Return to the emergency department with worsening or new concerning symptoms. Referrals: NISHANT MILLS, [Primary Care Provider] - Follow up as needed
[2019-02-04 16:16] VITALS: BP 110/66
== END 2019-02-04 16:22 | disposition home or self-care (01) ==
LOC: ER 10:28
DX: L03.115 Cellulitis of right lower limb (principal); R60.9 Edema, unspecified; F17.200 Nicotine dependence, unspecified, uncomplicated; I10 Essential (primary) hypertension
CPT/HCPCS: 99284; 96372; 36415; 85025; 80053; 93971; 73562; J1885

== ENCOUNTER → 2019-11-15 | Outpatient (CLI) | payer MEDICAID ==
--- NOTE | 2019-11-15 10:38 | RADIOLOGY REPORT (SQ) ---
EXAM DESCRIPTION: ELBOW RIGHT >2 VIEWS COMPLETED DATE/TIME: 11/15/2019 10:20 am REASON FOR STUDY: RT ELBOW PAIN M25.521 PAIN IN RIGHT ELBOW S59.901A UNSPECIFIED INJURY OF RIGHT E LBOW, INITIAL ENCOUNTE COMPARISON: None. NUMBER OF VIEWS: Four views. TECHNIQUE: AP, lateral, and both oblique radiographic images acquired of the right elbow. LIMITATIONS: None. FINDINGS: MINERALIZATION: Normal. BONES: No definite fracture identified. Tiny cortical irregularity at the radial head. Postsurgical changes from prior anterior plate and screw fixation of the radial diaphysis, partially visualized. JOINT: Moderate anterior joint effusion. SOFT TISSUES: Soft tissue swelling posterior to the elbow. No radiopaque foreign body. OTHER: No other significant finding. IMPRESSION: No displaced fracture. Moderate anterior joint effusion which can be seen with an occu lt fracture, often radial head. Short-term follow-up radiograph could be considered for more complet e characterization. TECHNICAL DOCUMENTATION: JOB ID: [id number] 2010 [employer]- All Rights Reserved Reading location - IP/workstation name: [email or web address]
== END ==
LOC: RAD 09:55
PROVIDERS: ATTEND Family Medicine
DX: S59.901A Unspecified injury of right elbow, initial encounter (principal); M25.521 Pain in right elbow; X58.XXXA Exposure to other specified factors, initial encounter

== ENCOUNTER → 2019-12-28 | Outpatient (CLI) | payer MEDICAID ==
--- NOTE | 2019-12-28 11:44 | RADIOLOGY REPORT (SQ) ---
EXAM DESCRIPTION: ELBOW RIGHT >2 VIEWS IMAGES COMPLETED DATE/TIME: 12/28/2019 11:22 am REASON FOR STUDY: RT ELBOW PAIN; RIB PAIN ON RT SIDE M25.521 PAIN IN RIGHT ELBOW R07.81 PLEURODYNI A COMPARISON: None. NUMBER OF VIEWS: Four views. TECHNIQUE: AP, lateral, and both oblique radiographic images acquired of the right elbow. LIMITATIONS: None. FINDINGS: MINERALIZATION: Normal. BONES: No fracture identified. Volar plate and screw fixation of the mid radial diaphysis. JOINT: Decreased size of previously seen anterior loop joint effusion. No residual effusion. SOFT TISSUES: No soft tissue swelling. No foreign body. OTHER: No other significant finding. IMPRESSION: 1. No evidence of acute bony abnormality of the right elbow. Decreased previously-seen elbow joint effusion. 2. Partially evaluated volar plate and screw fixation hardware about the midshaft radius TECHNICAL DOCUMENTATION: JOB ID: [id number] 2010 [employer]- All Rights Reserved Reading location - IP/workstation name: [email or web address]
--- NOTE | 2019-12-28 12:07 | RADIOLOGY REPORT (SQ) ---
EXAM DESCRIPTION: RIBS RIGHT W/PA CHEST IMAGES COMPLETED DATE/TIME: 12/28/2019 11:22 am REASON FOR STUDY: RT ELBOW PAIN; RIB PAIN ON RT SIDE M25.521 PAIN IN RIGHT ELBOW R07.81 PLEURODYNI A COMPARISON: None. TECHNIQUE: Frontal view of the chest and additional views of the right ribs acquired. NUMBER OF VIEWS: Five view. LIMITATIONS: None. FINDINGS: FRONTAL CXR: No pneumothorax. No pleural effusion. No atelectasis or infiltrates. Evide nce of prior left acromioclavicular injury with superior subluxation of the distal clavicle and heter otopic ossification along the cortical clavicular ligament. RIBS: Subacute appearing right posterolateral 8th - 11h rib fractures with callus formation. No disp laced fracture identified. OTHER: No other significant finding. IMPRESSION: Subacute appearing right posterolateral 8th -11th rib fractures with callus formation. COMMENT: SITE OF TRAUMA/COMPLAINT MARKED/STAMP COMPLETED: YES. TECHNICAL DOCUMENTATION: JOB ID: [id number] 2010 [employer]- All Rights Reserved Reading location - IP/workstation name: [email or web address]
== END ==
LOC: OD 10:33
PROVIDERS: ATTEND Family Medicine
DX: M25.521 Pain in right elbow (principal); R07.81 Pleurodynia

== ENCOUNTER → 2020-04-13 | Outpatient (CLI) | payer MEDICARE, MEDICAID ==
[2020-04-13 13:48] LABS: ABSOLUTE BASOPHILS # (AUTO) 0.1 10^3/uL (0.0-0.2); ABSOLUTE EOSINOPHILS # (AUTO) 0.2 10^3/uL (0.0-0.6); ABSOLUTE LYMPHOCYTES (AUTO) 2.3 10^3/uL (0.5-4.7); ABSOLUTE MONOCYTES (AUTO) 1.1 10^3/uL (0.1-1.4); ABSOLUTE NEUT (AUTO) 7.4 10^3/uL (1.7-8.2); BASOPHILS % (AUTO) 1.3 % (0-2); EOSINOPHILS % (AUTO) 1.4 % (0-6); HEMATOCRIT 45.9 % (37.9-51.0); HEMOGLOBIN 15.5 g/dL (13.5-17.0); LYMPHOCYTES % (AUTO) 20.7 % (13-45); MEAN CORPUSCULAR HEMOGLOBIN 34.9 pg (27.0-33.4); MEAN CORPUSCULAR HGB CONC 33.8 g/dL (32.0-36.0); MEAN CORPUSCULAR VOLUME 103 fl (80-97); MONOCYTES % (AUTO) 9.8 % (3-13); PLATELET COUNT 145 10^3/uL (150-450); RED BLOOD COUNT 4.44 10^6/uL (4.35-5.55); RED CELL DISTRIBUTION WIDTH 16.4 % (11.5-14.0); SEGMENTED NEUTROPHILS % (AUTO) 66.8 % (42-78); TOTAL CELLS COUNTED % (AUTO) 100 %; WHITE BLOOD COUNT 11.1 10^3/uL (4.0-10.5)
[2020-04-13 14:04] LABS: ALKALINE PHOSPHATASE 66 U/L (38-126); ANION GAP 7 (5-19); ASPARTATE AMINO TRANSFERASE 87 U/L (17-59); BILIRUBIN,DIRECT 0.6 mg/dL (0.0-0.4); BILIRUBIN,TOTAL 1.8 mg/dL (0.2-1.3); BLOOD UREA NITROGEN 8 mg/dL (7-20); CARBON DIOXIDE 32 mmol/L (22-30); CHLORIDE 98 mmol/L (98-107); GLUCOSE 98 mg/dL (75-110); POTASSIUM 4.3 mmol/L (3.6-5.0); TOTAL PROTEIN 7.8 g/dL (6.3-8.2)
== END ==
LOC: OD 12:47
PROVIDERS: ATTEND Family Medicine
DX: J43.2 Centrilobular emphysema (principal); R60.0 Localized edema; R14.0 Abdominal distension (gaseous)
CPT/HCPCS: 36415; 80053; 83880; 85025